=== PATIENT | male | born 1985 | race Caucasian/White ===

== ENCOUNTER → 2016-06-16 | Outpatient (CLI) | payer OTHER ==
[~2016-06-16] MED LIST: CONRAY-43 43% 50ML VIAL (Q9960) As Ordered ONE; LIDOCAINE 1% MDV 20ML VIAL As Ordered ONE; TRIAMCINOLONE ACETONIDE SUSP 40 MG/ML VIAL (J3301) As Ordered ONE
--- NOTE | 2016-06-16 17:29 | REP ---
Right hip injection The procedure was performed under the direct supervision of Dr. Duran. The benefits and risks including but not limited to pain infection and bleeding and anaphylaxis were explained to the patient and informed consent was obtained. The right femoral neck was localized using fluoroscopic guidance. The skin was prepped and draped in a sterile fashion. 1% lidocaine was used as a local anesthetic. Using fluoroscopic guidance a 22-gauge spinal needle was inserted and advanced to the femoral neck. 0.5 ml of Conray 43 was injected to verify placement. 10 ml of a solution containing 9 ml of 1% Xylocaine and 1 ml of Kenalog 40 mg was injected. The needle was then removed. The patient tolerated the procedure well and there were no immediate complications. 1 second of fluoro time was utilized for this procedure. Reviewed by MONSE Antonio 06/16/2016 04:27 PSigned by Beto Duran MD 06/16/2016 05:19 P
== END ==
LOC: M RADPRO 09:56
DX: M24.151 Other articular cartilage disorders, right hip (principal)
CPT/HCPCS: 20610; 77002; J3301; Q9960

== ENCOUNTER 2016-09-28 06:10 | Day surgery (SDC) | payer OTHER ==
[~2016-09-28] VITALS: Ht 172.7 cm; Wt 104.3 kg
[~2016-09-28 06:10] MED LIST changes: -CONRAY-43 43% 50ML VIAL (Q9960) As Ordered ONE; +IBUP80TA PO; -LIDOCAINE 1% MDV 20ML VIAL As Ordered ONE; -TRIAMCINOLONE ACETONIDE SUSP 40 MG/ML VIAL (J3301) As Ordered ONE
[2016-09-28] MEDS ORDERED: LR 1,000 ML IV SCH ×2 (06:15→09:45)
[2016-09-28] MEDS ORDERED: BUPIVACAINE/EPIN 0.25% 30 ML VIAL As Ordered ONE (07:14)
[2016-09-28] MEDS ORDERED: fentaNYL 100 MCG/2 ML INJECTION (J3010) As Ordered ONE (07:53)
[2016-09-28] MEDS ORDERED: LIDOCAINE 2% INJ 100 MG/5 ML SDV (FOR ANES.) As Ordered ONE (07:53)
[2016-09-28] MEDS ORDERED: dexameTHASONE 4 MG/ML 1ML VIAL (J1100) As Ordered ONE (07:53)
[2016-09-28] MEDS ORDERED: ROCURONIUM BROMIDE 50 MG/5 ML VIAL/SYRINGE As Ordered ONE ×2 (07:53→08:34)
[2016-09-28] MEDS ORDERED: ONDANSETRON 4MG/2ML VIAL (J2405) As Ordered ONE (07:53)
[2016-09-28] MEDS ORDERED: MIDAZOLAM INJ 2 MG/2 ML VIAL (J2250) As Ordered ONE (07:53)
[2016-09-28] MEDS ORDERED: GLYCOPYRROLATE INJ 0.2 MG/ML 2 ML VIAL As Ordered ONE (07:56)
[2016-09-28] MEDS ORDERED: NEOSTIGMINE 1MG/ML 5 ML SYRINGE (J2710) As Ordered ONE (07:56)
[2016-09-28] MEDS ORDERED: HYDROmorphone HCL 2 MG/ML 1ML VIAL (J1170) As Ordered ONE (08:52)
[2016-09-28] MEDS ORDERED: NORCO, ANEXSIA 5/325MG TABLET (HYDROcodone/ACETAMINOPHEN) PO PRN (09:45)
[2016-09-28] MEDS ORDERED: PERCOCET 5MG/325MG TAB PO PRN (09:45)
[2016-09-28] MEDS ORDERED: METOCLOPRAMIDE INJ 10MG/2ML VIAL (J2765) IV PRN (09:45)
[2016-09-28] MEDS ORDERED: MORPHINE 2 MG/ML 1ML SYRINGE IV PRN (09:45)
[2016-09-28] MEDS ORDERED: ONDANSETRON 4MG/2ML VIAL (J2405) IV PRN (09:45)
[2016-09-28] MEDS ORDERED: fentaNYL 100 MCG/2 ML INJECTION (J3010) IV PRN (09:45)
[2016-09-28] MEDS ORDERED: KETOROLAC 60 MG/2 ML VIAL (J1885) As Ordered ONE (09:58)
[2016-09-28] MEDS ORDERED: fentaNYL 250 MCG/5 ML INJECTION (J3010) As Ordered ONE (09:58)
[2016-09-28] MEDS ORDERED: PROPOFOL 200 MG/20 ML VIAL As Ordered ONE (09:58)
[2016-09-28 11:45] VITALS: BP 165/90
--- NOTE | 2016-09-29 05:54 | RO ---
DATE OF PROCEDURE: 09/28/2016 PREOPERATIVE DIAGNOSIS: Symptomatic cholelithiasis. POSTOPERATIVE DIAGNOSIS: Symptomatic cholelithiasis. PROCEDURE: Laparoscopic cholecystectomy. SURGEON: Dr. Green. INFORMATICS PHYSICIAN LIAISON: Dr. Velasco. ANESTHESIA: General. ESTIMATED BLOOD LOSS: 10. COMPLICATIONS: None. INDICATIONS FOR PROCEDURE: The patient is a 30-year-old male who presents with signs and symptoms consistent with symptomatic cholelithiasis. Recommendations to proceed with laparoscopic possible open cholecystectomy. Risks and benefits of the procedure not limited but including bleeding, infection, hernia formation, damage to surrounding structures, need further surgery were discussed in detail with the patient. Informed was obtained and procedure was planned. PROCEDURE: The patient was brought back to operating room two. After sufficient sedation, the abdomen was sterilely prepped. Next time-out was done to confirm proper patient and proper procedure. Following that, an incision was made in the left lower quadrant at [place] point. Veress needle was inserted and the abdomen was insufflated to 15 mmHg. Next a 5 mm supraumbilical incision was made and 5 mm OptiView port was used to gain access to the abdomen. Once the abdomen was entered, Veress needle site was exam. There were no signs of injury. Veress needle was then removed. An 11 mm port was placed subxiphoid. Two 5 mm ports in right upper quadrant. The fundus of the gallbladder was elevated up towards the right shoulder. The mental adhesions to the gallbladder were carefully taken off bluntly. The cystic duct and cystic artery were extremely scarred down due to very large stone right in the neck of the gallbladder that I was unable to dissect free, so the gallbladder was dissected free from the fundus down towards the neck. Once the neck was reached circumferentially, a large incision was made in the middle of the gallbladder and the stone was carefully removed through that incision. Next the gallbladder was cut right at the neck and Endoloops were placed around the gallbladder neck to ligate it. Two PDS Endoloops were used. Once this was completed, there were no signs of any bilious drainage. The #19-Citizen [place] Edison drain was placed in the gallbladder fossa and brought out through the right sided port site. That was sutured in place with a silk suture. Abdomen was then desufflated. Skin incision closed with #4-0 Vicryl subcuticular sutures. Abdomen was cleaned and dried. Steri-Strips, 4x4 and tape were applied thus ending procedure.
== END 2016-09-28 12:05 | disposition home or self-care (01) ==
LOC: M SDC 06:10
PROVIDERS: ATTEND Surgery
DX: K80.10 Calculus of gallbladder with chronic cholecystitis without obstruction (principal); E78.00 Pure hypercholesterolemia, unspecified; S73.191D Other sprain of right hip, subsequent encounter; R06.83 Snoring; Z72.0 Tobacco use
CPT/HCPCS: 47562; 88304; J0690; J1100; J1170; J1885; J2250; J2405; J2710; J3010